=== PATIENT | male | born 1945 | race Caucasian/White ===

== ENCOUNTER → 2020-09-28 08:42 | Outpatient (BNVA) | payer MEDICARE, SELFPAY | PROVIDERS: PCP Internal Medicine; Visit Provider Hospitalist | DX: G47.33 Obstructive sleep apnea (adult) (pediatric) (principal); R06.2 Wheezing; Z99.89 Dependence on other enabling machines and devices | CPT/HCPCS: 99212 ==

== ENCOUNTER → 2021-09-29 09:12 | Outpatient (BNVA) | payer MEDICARE, SELFPAY | PROVIDERS: PCP Internal Medicine; Visit Provider Hospitalist | DX: G47.33 Obstructive sleep apnea (adult) (pediatric) (principal); R06.2 Wheezing; Z99.89 Dependence on other enabling machines and devices | CPT/HCPCS: 99212 ==

== ENCOUNTER → 2022-10-26 14:10 | Outpatient (BNVA) | payer MEDICARE, SELFPAY | PROVIDERS: PCP Internal Medicine; Visit Provider Hospitalist | DX: J45.909 Unspecified asthma, uncomplicated (principal); G47.33 Obstructive sleep apnea (adult) (pediatric); R06.2 Wheezing; Z99.89 Dependence on other enabling machines and devices | CPT/HCPCS: 99212 ==

== ENCOUNTER 2023-04-26 13:38 | Outpatient (AMB) | payer MEDICARE, SELFPAY ==
[2023-04-26 13:54] VITALS: PULSE 38; O2SAT 98; BMI 29.4
--- NOTE | 2023-04-26 13:54 | MHC.OFFVIS ---
Intake Vital Signs 04/26/23 13:54 Height 5 ft 10 in Weight 205 lb BMI 29.4 Pulse 38 L Pulse Source Pulse Oximeter Pulse Oximetry (%) 98 Oxygen Delivery Method Room Air Intake Visit Reasons: COPD [employer] Required: No Allergies niacin Allergy (Severe, Verified 04/26/23 13:55) Hot Flashes HPI HPI Comments History of Present Illness Details The patient is a 77-year-old gentleman with a known history of obstructive sleep apnea now for many years. He has been on PAP therapy with very good response. He typically uses the APAP for more than 4 hours a night. He did bring his machine and we were able to look at her and adjusted. Currently set up as APAP 6-12. His average pressure is 10 cm. His AHI is down to 0.4 events per hour. He does wear a fullface mask. His major complaint is the dry mouth. We did talk about using the warm up option. In addition to that we did increase humidity from 5-6. He will do better with the climate tubing so will request that from his current [employer] company [employer]. He has also been noticing increasing shortness of breath and wheezing specially in the morning. He is not interested in using her rescue inhaler at this point. He was exposed to significant chemicals as he worked for a [employer]. In addition to that the patient was diagnosed with bladder cancer. Initially received BCG without any significant improvement and then placed on a 2nd chemotherapy agent minocyclin. The patient is scheduled for cystoscopy this week to assess the response to the chemotherapy. 09/29/2021 the patient is here for a pulmonary follow-up visit. Overall he is doing well from a respiratory status. He is using the CPAP every night. CPAP therapy continues to be affecting beneficial. His APAP 6-12. The AHI still around 0.4 events an hour. He is using heated tubing that appears to be more effective for him. He is also using the F 20 foam mask which she really likes. The patient does have some chest congestion usually in the morning. He has not had to use any rescue medication. Recently he did have to undergo bladder and prostate resection due to bladder cancer that was extending tissue lining of the bladder. He tolerated the surgery well. Now the considering immune therapy. Explained to him that once he starts immune therapy he may start having more respiratory symptoms specially with his intermittent wheezing. Therefore, he will call the office for respiratory inhalers. We did review his chest x-ray from September 2020 demonstrating no acute disease. He does have postsurgical changes and also a hiatal hernia present. This are unchanged. 10/26/2022 the patient is here for a pulmonary follow-up visit. Overall the patient has been doing okay. Noticing worsening wheezing while being on the immune therapy for his bladder cancer. Now he has completed the course and hopefully his respiratory status will go back to baseline. In the meantime he does have increased wheezing on examination therefore will go ahead and start him on a maintenance inhaler. Patient also has been using his CPAP. Although he has been having difficulties finding a mask that fits him well. keeps having issues with air leakage that bothers him. Therefore a foam mask may be a good option for him. Will going to request an F20 AirTouch foam mask with hopes that he can do better tolerating CPAP. Otherwise the patient is doing well. Will continue to monitor him closely. If the Symbicort is not effective for him or if his wheezing gets worse he will call the office for an earlier assessment. 04/26/2023 the patient is here for pulmonary follow-up visit. overall the patient is doing a little better. Seems like is in remission at this time. He does have a ureterostomy that has changed the way he sleeps. Before he was able to sleep on his side now sleeping supine. He is using the CPAP every night. CPAP therapy continues to be affecting beneficial. He did bring it in. He does use it for more than 4 hours a night. Unfortunately because of the change in position now the AHI has increased to 11 episodes per hour. His APAP settings are 6-12. His average pressure is 12. Therefore I changed the pressures to 8 to 16. if the patient does not tolerate the increasing the pressures he can always call me and I can adjusted. However, he understands that with the elevated AHI he definitely needs a lot more pressure. The patient also complains of nasal congestion. He does have his shoes with glaucoma so therefore we have to hold off on anticholinergic therapy. Therefore will start him on fluticasone nasal spray to decrease the inflammation. He can also use saline rinse to rinse out his sinuses and nasal passages before putting on his CPAP. He continues uses Symbicort although not often. Is okay for him to use it as needed. He still has a little wheezing on exam but is better. In part the wheezing was likely related to the immune therapy. [facility] Medical History (Updated 04/26/23 @ 20:30 by Benedict Villa MD) Asthma Wheezing EDSON on CPAP Bladder cancer Social History (Updated 09/28/20 @ 08:59 by SONG Barron) Patient Tobacco Use Status: Former Tobacco user Tobacco use type: Cigarette Years Smoked: 25 years Review of Systems Const Reports daytime sleepiness and Denies night sweats ENT Denies change in voice, Reports dry mouth, Denies lip swelling, Denies mouth pain, Reports nasal congestion, Reports nasal discharge, Reports post nasal drip and Denies tongue swelling Card Denies chest pain Resp Denies chest congestion, Reports cough and Reports wheezing GI Denies abdominal pain Reports as per HPI Musc Denies no additional complaints Neuro Denies Neuro-related abnormal movements Psych Denies no additional complaints Paul/Lymph Denies easy bleeding and Denies lymphadenopathy Aller/Immun Denies lip swelling, Denies tongue swelling and Reports wheezing Physical Exam Vital Signs: Last Vital Signs Pulse 38 L 04/26/23 13:54 Pulse Ox 98 04/26/23 13:54 Oxygen Delivery Method Room Air 04/26/23 13:54 BMI result Body Mass Index 29.4 Const General: alert Neck Neck: Yes normal visual inspection, Yes full ROM and Yes no lymphadenopathy Chest Chest palpation & inspection: normal inspection of the chest Resp Effort & Inspection: No prolonged expiratory phase Auscultation: no wheezes and diminished lung sounds Cardio Rate: regular rate Rhythm: regular rhythm Heart sounds: S1 normal heart sound present and S2 normal heart sound present GI Palpation (GI): Soft to palpation and nontender Auscultation: normal bowel sounds Skin General skin exam: rashes and/or lesions noted Assessment & Plan Assessment & Plan (1) EDSON on CPAP: Code(s): G47.33 - Obstructive sleep apnea (adult) (pediatric); Z99.89 - Dependence on other enabling machines and devices (2) Asthma: Comment: worsened by immune therapy Code(s): J45.909 - Unspecified asthma, uncomplicated Qualifiers: Asthma severity: moderate Asthma persistence: persistent Asthma complication type: uncomplicated Qualified Code(s): J45.40 - Moderate persistent asthma, uncomplicated (3) Wheezing: Code(s): R06.2 - Wheezing Plan Increase APAP 8-16 CPAP supplies, inline climate tubing, F20 Foam continue Symbicort as needed Consider ALEX as needed Reflux diet start Fluticasone nasal spray F/U 6-8 months Medications: New fluticasone propionate 50 mcg/actuation 2 sprays intranasal DAILY 30 days 15.8 mL 11RF J31.0 - Chronic rhinitis Coding Level of Care Code Est Pt Level 4 (63636) Diagnoses EDSON on CPAP G47.33; Z99.89 Moderate persistent asthma without complication J45.40 Asthma severity: moderate Asthma persistence: persistent Asthma complication type: uncomplicated Wheezing R06.2 Time Spent (min) 17
== END 2023-04-26 14:25 | disposition home or self-care (01) ==
PROVIDERS: PCP Internal Medicine; Visit Provider Hospitalist
DX: G47.33 Obstructive sleep apnea (adult) (pediatric) (principal); Z99.89 Dependence on other enabling machines and devices; J45.40 Moderate persistent asthma, uncomplicated
CPT/HCPCS: 99214

== ENCOUNTER → 2023-04-26 13:38 | Outpatient (BNVA) | payer MEDICARE, SELFPAY | PROVIDERS: PCP Internal Medicine; Visit Provider Hospitalist | DX: G47.33 Obstructive sleep apnea (adult) (pediatric) (principal); J45.40 Moderate persistent asthma, uncomplicated; Z99.89 Dependence on other enabling machines and devices | CPT/HCPCS: 99212 ==

== ENCOUNTER 2024-06-03 10:34 | Outpatient (AMB) | payer MEDICARE, SELFPAY ==
--- NOTE | 2024-06-03 10:37 | MHC.OFFVIS ---
Vital Signs 06/03/24 10:39 Height 5 ft 10 in Weight 232 lb 9.403 oz BMI 33.4 BP 100/58 L Blood Pressure Location Rt brachial Position Sitting Pulse 41 L Pulse Source Pulse Oximeter Pulse Oximetry (%) 98 Oxygen Delivery Method Room Air Intake Visit Reasons: Obstructive sleep apnea Allergies niacin Allergy (Severe, Verified 06/03/24 10:42) Hot Flashes HPI Comments Details: The patient is a 78-year-old gentleman with a known history of obstructive sleep apnea now for many years. He has been on PAP therapy with very good response. He typically uses the APAP for more than 4 hours a night. He did bring his machine and we were able to look at her and adjusted. Currently set up as APAP 6-12. His average pressure is 10 cm. His AHI is down to 0.4 events per hour. He does wear a fullface mask. His major complaint is the dry mouth. We did talk about using the warm up option. In addition to that we did increase humidity from 5-6. He will do better with the climate tubing so will request that from his current [employer] company [employer]. He has also been noticing increasing shortness of breath and wheezing specially in the morning. He is not interested in using her rescue inhaler at this point. He was exposed to significant chemicals as he worked for a [employer]. In addition to that the patient was diagnosed with bladder cancer. Initially received BCG without any significant improvement and then placed on a 2nd chemotherapy agent minocyclin. The patient is scheduled for cystoscopy this week to assess the response to the chemotherapy. 09/29/2021 the patient is here for a pulmonary follow-up visit. Overall he is doing well from a respiratory status. He is using the CPAP every night. CPAP therapy continues to be affecting beneficial. His APAP 6-12. The AHI still around 0.4 events an hour. He is using heated tubing that appears to be more effective for him. He is also using the F 20 foam mask which she really likes. The patient does have some chest congestion usually in the morning. He has not had to use any rescue medication. Recently he did have to undergo bladder and prostate resection due to bladder cancer that was extending tissue lining of the bladder. He tolerated the surgery well. Now the considering immune therapy. Explained to him that once he starts immune therapy he may start having more respiratory symptoms specially with his intermittent wheezing. Therefore, he will call the office for respiratory inhalers. We did review his chest x-ray from September 2020 demonstrating no acute disease. He does have postsurgical changes and also a hiatal hernia present. This are unchanged. 10/26/2022 the patient is here for a pulmonary follow-up visit. Overall the patient has been doing okay. Noticing worsening wheezing while being on the immune therapy for his bladder cancer. Now he has completed the course and hopefully his respiratory status will go back to baseline. In the meantime he does have increased wheezing on examination therefore will go ahead and start him on a maintenance inhaler. Patient also has been using his CPAP. Although he has been having difficulties finding a mask that fits him well. keeps having issues with air leakage that bothers him. Therefore a foam mask may be a good option for him. Will going to request an F20 AirTouch foam mask with hopes that he can do better tolerating CPAP. Otherwise the patient is doing well. Will continue to monitor him closely. If the Symbicort is not effective for him or if his wheezing gets worse he will call the office for an earlier assessment. 04/26/2023 the patient is here for pulmonary follow-up visit. overall the patient is doing a little better. Seems like is in remission at this time. He does have a ureterostomy that has changed the way he sleeps. Before he was able to sleep on his side now sleeping supine. He is using the CPAP every night. CPAP therapy continues to be affecting beneficial. He did bring it in. He does use it for more than 4 hours a night. Unfortunately because of the change in position now the AHI has increased to 11 episodes per hour. His APAP settings are 6-12. His average pressure is 12. Therefore I changed the pressures to 8 to 16. if the patient does not tolerate the increasing the pressures he can always call me and I can adjusted. However, he understands that with the elevated AHI he definitely needs a lot more pressure. The patient also complains of nasal congestion. He does have his shoes with glaucoma so therefore we have to hold off on anticholinergic therapy. Therefore will start him on fluticasone nasal spray to decrease the inflammation. He can also use saline rinse to rinse out his sinuses and nasal passages before putting on his CPAP. He continues uses Symbicort although not often. Is okay for him to use it as needed. He still has a little wheezing on exam but is better. In part the wheezing was likely related to the immune therapy. 06/03/2024 the patient is here for a pulmonary follow-up visit. Overall the patient has been doing well. He did bring his CPAP. His AHI is 1. his usage is more than 4 hours. The therapy has been affecting beneficial. Does like the F20 foam mask well. Has not had any issues. In the meantime his breathing has been stable. He has not required any rescue inhaler therapy. No recent imaging studies to review. Although, he does have a PET scan scheduled sometime for the summer. He is going to request a report to be sent to me so I can reviewed as well. Otherwise will follow-up in a year's time. [facility] Medical History (Updated 04/26/23 @ 20:30 by Benedict Villa MD) Asthma Wheezing EDSON on CPAP Bladder cancer Social History Patient Tobacco Use Status: Former Tobacco user Tobacco use type: Cigarette Years Smoked: 25 years Review of Systems [employer] Reports daytime sleepiness and Denies night sweats ENT Denies change in voice, Reports dry mouth, Denies lip swelling, Denies mouth pain, Reports nasal congestion, Reports nasal discharge, Reports post nasal drip and Denies tongue swelling Card Denies chest pain Resp Denies chest congestion, Reports cough and Denies wheezing GI Denies abdominal pain Reports as per HPI Musc Denies no additional complaints Neuro Denies Neuro-related abnormal movements Psych Denies no additional complaints Paul/Lymph Denies easy bleeding and Denies lymphadenopathy Aller/Immun Denies lip swelling, Denies tongue swelling and Denies wheezing Physical Exam Vital Signs: Last Vital Signs Pulse 41 L 06/03/24 10:39 BP 100/58 L 06/03/24 10:39 Pulse Ox 98 06/03/24 10:39 Oxygen Delivery Method Room Air 06/03/24 10:39 BMI result Body Mass Index 33.4 Const General: alert Neck Neck: Yes normal visual inspection, Yes full ROM and Yes no lymphadenopathy Chest Chest palpation & inspection: normal inspection of the chest Resp Effort & Inspection: No prolonged expiratory phase Auscultation: no wheezes and diminished lung sounds Cardio Rate: regular rate Rhythm: regular rhythm Heart sounds: S1 normal heart sound present and S2 normal heart sound present GI Palpation (GI): Soft to palpation and nontender Auscultation: normal bowel sounds Skin General skin exam: rashes and/or lesions noted Assessment & Plan Assessment & Plan (1) EDSON on CPAP: Code(s): G47.33 - Obstructive sleep apnea (adult) (pediatric); Z99.89 - Dependence on other enabling machines and devices Category: Medical (2) Asthma: Comment: worsened by immune therapy Code(s): J45.909 - Unspecified asthma, uncomplicated Category: Medical Qualifiers: Asthma complication type: uncomplicated Asthma persistence: persistent Asthma severity: moderate Qualified Code(s): J45.40 - Moderate persistent asthma, uncomplicated Plan continue APAP 8-16 CPAP supplies, inline climate tubing, F20 Foam continue Symbicort as needed Consider ALEX as needed Reflux diet Fluticasone nasal spray requesting PET scan once completed F/U 8-12 months Coding Level of Care Code Est Pt Level 4 (80939) Diagnoses EDSON on CPAP G47.33; Z99.89 Moderate persistent asthma without complication J45.40 Asthma complication type: uncomplicated Asthma persistence: persistent Asthma severity: moderate Time Spent (min) 16
[2024-06-03 10:39] VITALS: BP 100/58; PULSE 41; O2SAT 98; BMI 33.4
== END 2024-06-03 11:06 | disposition home or self-care (01) ==
PROVIDERS: PCP Psychiatry & Neurology Neurology; Visit Provider Hospitalist
DX: G47.33 Obstructive sleep apnea (adult) (pediatric) (principal); Z99.89 Dependence on other enabling machines and devices; J45.40 Moderate persistent asthma, uncomplicated
CPT/HCPCS: 99214

== ENCOUNTER → 2024-06-03 10:34 | Outpatient (BNVA) | payer MEDICARE, SELFPAY | PROVIDERS: PCP Internal Medicine; Visit Provider Hospitalist | DX: G47.33 Obstructive sleep apnea (adult) (pediatric) (principal); J45.40 Moderate persistent asthma, uncomplicated; Z99.89 Dependence on other enabling machines and devices | CPT/HCPCS: 99212 ==